=== PATIENT | male | born 1995 ===

== ENCOUNTER → 2024-05-18 | Outpatient (CLI) | payer BC ==
[2024-05-18 14:29] LABS: Bun/Creatinine Ratio 18.1 (12.0-20.0); Calcium, Blood 9.7 mg/dL (8.5-10.1); Creatinine, Blood 0.72 mg/dL (0.60-1.20); Potassium, Blood 3.9 mmol/L (3.5-5.5)
== END | disposition home or self-care (01) ==
LOC: LAB 14:19 → LAB SHORT 14:19
PROVIDERS: Physician Assistant
DX: R11.10 Vomiting, unspecified (principal)
CPT/HCPCS: 80048

== ENCOUNTER → 2024-06-17 | Outpatient (CLI) | payer BC | LOC: LAB SHORT 11:46 → LAB 11:46 | DX: R30.0 Dysuria (principal) | CPT/HCPCS: 87086 ==

== ENCOUNTER → 2024-10-09 | Outpatient (CLI) | payer BC ==
[2024-10-11 20:33] LABS: APTIMA MEDIA TYPE Urine; C. TRACHOMATIS BY TMA Negative (Negative); N. GONORRHOEAE BY TMA Negative (Negative); SPECIMEN SOURCE Urine; T. VAGINALIS BY TMA Negative (Negative)
== END ==
LOC: LAB SHORT 11:54 → LAB 11:54
PROVIDERS: Family Medicine
DX: R30.0 Dysuria (principal)
CPT/HCPCS: 87491; 87591; 87661

== ENCOUNTER 2024-12-08 18:01 | Emergency (ER) | payer BC ==
[~2024-12-08] VITALS: Ht 172.7 cm; Wt 81.7 kg
[2024-12-08] MEDS ORDERED: Buspirone HCl15 MG (19:24)
[2024-12-08] MEDS ORDERED: CAPLYTA21 MG PO (19:25)
== END 2024-12-08 19:53 | disposition home or self-care (01) ==
LOC: ER 18:01
DX: N50.812 Left testicular pain (principal); N50.811 Right testicular pain; Z88.0 Allergy status to penicillin
CPT/HCPCS: 76870; 99284-25

== ENCOUNTER → 2025-01-17 | Outpatient (CLI) | payer BC ==
[~2025-01-17] MED LIST: Buspirone HCl15 MG; CAPLYTA21 MG PO
[2025-01-19 14:26] LABS: RPR SCREEN with Reflex Reactive (Nonreactive)
[2025-01-19 16:39] LABS: HIV 1,2 COMBO ANTIGEN/ANTIBODY Negative (Negative)
[2025-01-19 17:50] LABS: HEPATITIS A ANTIBODY, IGM Negative (Negative); HEPATITIS B CORE ANTIBODY, IGM Negative (Negative); HEPATITIS B SURFACE ANTIGEN Negative (Negative); HEPATITIS C AB CIA INTERP Negative (Negative); HEPATITIS C ANTIBODY CIA INDEX 0.18 IV
[2025-01-20 15:53] LABS: APTIMA MEDIA TYPE Urine; C. TRACHOMATIS BY TMA Negative (Negative); N. GONORRHOEAE BY TMA Negative (Negative); SPECIMEN SOURCE Urine; T. VAGINALIS BY TMA Negative (Negative)
[2025-01-21 14:34] LABS: T.PALLIDUM AB,IGG (FTA-ABS) Reactive (Non Reactive)
== END ==
LOC: LAB 11:40 → LAB SHORT 11:40
PROVIDERS: Nurse Practitioner Family
DX: Z13.89 Encounter for screening for other disorder (principal); Z72.51 High risk heterosexual behavior
CPT/HCPCS: 80074; 86592; 86593; 86780; 87389; 87491; 87591; 87661

== ENCOUNTER → 2025-02-25 | Outpatient (CLI) | payer BC ==
[2025-02-27 07:29] LABS: APTIMA MEDIA TYPE Urine; C. TRACHOMATIS BY TMA Negative (Negative); N. GONORRHOEAE BY TMA Negative (Negative); SPECIMEN SOURCE Urine; T. VAGINALIS BY TMA Negative (Negative)
== END ==
LOC: LAB 13:16 → LAB SHORT 13:16
PROVIDERS: Registered Nurse Community Health
DX: Z11.3 Encounter for screening for infections with a predominantly sexual mode of transmission (principal); Z20.2 Contact with and (suspected) exposure to infections with a predominantly sexual mode of transmission
CPT/HCPCS: 87491; 87591; 87661

== ENCOUNTER → 2025-03-11 | Outpatient (CLI) | payer BC ==
[2025-03-13 18:55] LABS: APTIMA MEDIA TYPE Urine; C. TRACHOMATIS BY TMA Negative (Negative); N. GONORRHOEAE BY TMA Negative (Negative); SPECIMEN SOURCE Urine; T. VAGINALIS BY TMA Negative (Negative)
== END ==
LOC: LAB 11:06 → LAB SHORT 11:06
PROVIDERS: Registered Nurse Community Health
DX: Z11.3 Encounter for screening for infections with a predominantly sexual mode of transmission (principal); Z20.2 Contact with and (suspected) exposure to infections with a predominantly sexual mode of transmission
CPT/HCPCS: 87491; 87591; 87661

== ENCOUNTER 2025-04-26 16:01 | Emergency (ER) | payer BC ==
[~2025-04-26] VITALS: Ht 170.2 cm; Wt 79.4 kg
[2025-04-26] MEDS ORDERED: Doxycycline Hyclate 100 MG TAB PO ONE (19:25)
[2025-04-26] MEDS ORDERED: CefTRIAXone 500 MG Vial IM ONE (19:25)
[2025-04-26] MEDS ORDERED: LevoFLOXacin 500 MG Tab PO ONE (19:25)
[2025-04-26] MEDS ORDERED: LEVFLO500 PO (19:27)
[2025-04-26] MEDS ORDERED: DOXY100 PO (19:27)
== END 2025-04-26 20:08 | disposition home or self-care (01) ==
LOC: ER 16:01
DX: N45.1 Epididymitis (principal); Z72.52 High risk homosexual behavior; Z79.899 Other long term (current) drug therapy
CPT/HCPCS: 76870; 96372; 99284-25; A9270; J0696

== ENCOUNTER 2025-04-26 20:36 | Emergency (ER) | payer BC ==
[~2025-04-26] VITALS: Ht 170.2 cm; Wt 70.3 kg
[~2025-04-26 20:36] MED LIST changes: +DOXY100 PO; +LEVFLO500 PO
[2025-04-26 21:24] LABS: BASOPHILS ABSOLUTE AUTO 0.02 K/mm3 (0.00-0.23); BASOPHILS PERCENT AUTO 0 % (0-2); EOSINOPHILS ABSOLUTE AUTO 0.02 K/mm3 (0.00-0.68); EOSINOPHILS PERCENT AUTO 0 % (0-6); Hematocrit 35.6 % (37.0-53.0); Hemoglobin 11.9 g/dL (13.5-17.5); IMMATURE GRAN ABSOLUTE AUTO 0.02 K/mm3 (0.00-0.10); IMMATURE GRAN PERCENT AUTO 0 % (0-1); LYMPHOCYTES ABSOLUTE AUTO 1.27 K/mm3 (0.84-5.20); LYMPHOCYTES PERCENT AUTO 17 % (21-46); MONOCYTES ABSOLUTE AUTO 0.47 K/mm3 (0.16-1.47); MONOCYTES PERCENT AUTO 6 % (4-13); Mean Corpuscular HGB 32.5 pg (26.0-34.0); Mean Corpuscular HGB Conc 33.4 g/dL (31.5-36.5); Mean Corpuscular Volume 97 fL (80-100); Mean Platelet Volume 8.6 fL (9.1-12.4); NEUTROPHILS ABSOLUTE AUTO 5.74 K/mm3 (1.96-9.15); NEUTROPHILS PERCENT AUTO 76 % (41-73); Platelet Count 252 K/mm3 (150-400); RDW Coefficient Variation 13.1 % (11.7-14.2); RDW Standard Deviation 47.2 fL (35.1-46.3); Red Blood Cell Count 3.66 M/mm3 (4.30-5.90); White Blood Cell Count 7.54 K/mm3 (4.00-11.30)
[2025-04-26 21:45] LABS: Albumin, Blood 4.5 g/dL (3.4-5.0); Albumin/Globulin Ratio 1.3 (0.8-1.8); Bilirubin, Total 1.3 mg/dL (0.1-1.0); Bun/Creatinine Ratio 11.1 (12.0-20.0); Calcium, Blood 9.5 mg/dL (8.5-10.1); Creatinine, Blood 0.72 mg/dL (0.60-1.20); Globulin, Blood 3.4 g/dL (2.2-4.0); Potassium, Blood 3.5 mmol/L (3.5-5.5); Total Protein, Blood 7.9 g/dL (6.4-8.2)
[2025-04-26 21:59] LABS: Source, Urine Clean Catch
[2025-04-26 22:01] LABS: Bilirubin, Urine Neg (Neg); Blood, Urine 2+ (Neg); Glucose Qualitative, Urine Neg (Neg); Ketones, Urine Neg (Neg); Leukocyte Esterase, Urine Neg (Neg); Nitrite, Urine Neg (Neg); Protein, Urine 2+ (Neg); Urobilinogen, Urine NORM (Normal)
[2025-04-26 22:05] LABS: Appearance, Urine Clear (Clear); Color, Urine Yellow (P-Yellow)
[2025-04-26 22:16] LABS: Bacteria Not Seen /hpf; Red Blood Cells, Urine 0-2 /hpf (0-2); Squamous Epithelial Cells Not Seen /hpf (Few); White Blood Cells, Urine Not Seen /hpf (0-5)
== END 2025-04-26 22:15 | disposition left against medical advice (07) ==
LOC: ER 20:36
PROVIDERS: Student in an Organized Health Care Education/Training Program
DX: R20.2 Paresthesia of skin (principal); R20.0 Anesthesia of skin; Z53.21 Procedure and treatment not carried out due to patient leaving prior to being seen by health care provider
CPT/HCPCS: 80053; 81001; 85025; 99281

== ENCOUNTER 2025-04-27 01:37 | Emergency (ER) | payer BC ==
[~2025-04-27] VITALS: Ht 170.2 cm; Wt 79.4 kg
[2025-04-27] MEDS ORDERED: Penicillin G Benzathine 1.2 MMU / 2 ML SYR IM ONE (02:05)
== END 2025-04-27 02:14 | disposition home or self-care (01) ==
LOC: ER 01:37
DX: Z20.2 Contact with and (suspected) exposure to infections with a predominantly sexual mode of transmission (principal); R20.0 Anesthesia of skin; L98.8 Other specified disorders of the skin and subcutaneous tissue; Z79.2 Long term (current) use of antibiotics; Z79.899 Other long term (current) drug therapy; Z59.89 Other problems related to housing and economic circumstances
CPT/HCPCS: 93005; 93010; 96372; 99283-25; J0561

== ENCOUNTER → 2025-05-16 | Outpatient (CLI) | payer BC ==
[2025-05-18 06:16] LABS: TREPONEMA PALLIDUM AB BY TP-PA Reactive (Non Reactive)
== END ==
LOC: LAB SHORT 11:30 → LAB 11:30
PROVIDERS: Nurse Practitioner Family
DX: A53.0 Latent syphilis, unspecified as early or late (principal)
CPT/HCPCS: 86780

== ENCOUNTER 2025-08-20 13:51 | Emergency (ER) | payer BC ==
[~2025-08-20] VITALS: Ht 172.7 cm; Wt 72.6 kg
[2025-08-20] MEDS ORDERED: Ondansetron HCl 2 MG / ML 2ML Vial IV ONE (14:10)
[2025-08-20 14:31] LABS: BASOPHILS ABSOLUTE AUTO 0.02 K/mm3 (0.00-0.23); BASOPHILS PERCENT AUTO 0 % (0-2); EOSINOPHILS ABSOLUTE AUTO 0.01 K/mm3 (0.00-0.68); EOSINOPHILS PERCENT AUTO 0 % (0-6); Hematocrit 38.9 % (37.0-53.0); Hemoglobin 13.1 g/dL (13.5-17.5); IMMATURE GRAN ABSOLUTE AUTO 0.04 K/mm3 (0.00-0.10); IMMATURE GRAN PERCENT AUTO 0 % (0-1); LYMPHOCYTES ABSOLUTE AUTO 1.73 K/mm3 (0.84-5.20); LYMPHOCYTES PERCENT AUTO 18 % (21-46); MONOCYTES ABSOLUTE AUTO 0.35 K/mm3 (0.16-1.47); MONOCYTES PERCENT AUTO 4 % (4-13); Mean Corpuscular HGB Conc 33.7 g/dL (31.5-36.5); Mean Corpuscular Volume 94 fL (80-100); NEUTROPHILS ABSOLUTE AUTO 7.35 K/mm3 (1.96-9.15); NEUTROPHILS PERCENT AUTO 77 % (41-73); NRBC ABSOLUTE 0.00 K/mm3 (0.00-0.02); NRBC Auto 0.0 /100 WBC (0.0-0.2); Platelet Count 386 K/mm3 (150-400); RDW Coefficient Variation 11.9 % (11.7-14.2); RDW Standard Deviation 41.1 fL (35.1-46.3)
[2025-08-20 14:52] LABS: Alanine Aminotransfer (ALT/SGP 31.0 U/L (12-78); Albumin, Blood 4.8 g/dL (3.4-5.0); Albumin/Globulin Ratio 1.5 (0.8-1.8); Anion Gap 13.0 mmol/L (3-11); Aspartate Aminotrans (AST/SGOT 22.0 U/L (12-37); Bilirubin, Total 1.0 mg/dL (0.1-1.0); Blood Urea Nitrogen 11.0 mg/dL (8-24); CO2, Blood 20.0 mmol/L (21-32); Calcium, Blood 9.6 mg/dL (8.5-10.1); Chloride, Blood 105.0 mmol/L (98-108); Creatinine, Blood 0.67 mg/dL (0.60-1.20); Globulin, Blood 3.2 g/dL (2.2-4.0); Glucose, Blood 194.0 mg/dL (70-99); Potassium, Blood 3.4 mmol/L (3.5-5.5); Sodium, Blood 135.0 mmol/L (136-145); Total Protein, Blood 8.0 g/dL (6.4-8.2)
[2025-08-20] MEDS ORDERED: NS 1,000 ML IV SCH (16:55)
[2025-08-20] MEDS ORDERED: Haloperidol Lactate Inj. 5 MG/ML Injection IV ONE (16:55)
== END 2025-08-20 17:41 | disposition home or self-care (01) ==
LOC: ER 13:51
PROVIDERS: Physician Assistant
DX: F41.9 Anxiety disorder, unspecified (principal); Z59.89 Other problems related to housing and economic circumstances
CPT/HCPCS: 71046; 80053; 85025; 93005; 93010; 96361; 96374; 96375; 99284-25; A9270; J1630; J2405; J7030